=== PATIENT | female | born 1995 | race Two or more races ===

== ENCOUNTER 2024-01-18 08:20 | Emergency (ER) | payer MEDICAID ==
[~2024-01-18] VITALS: Ht 162.6 cm; Wt 72.3 kg
[2024-01-18 08:46] VITALS: BP 134/92; PULSE 108; RESP 16; TEMP 97.8; O2SAT 97
[2024-01-18] MEDS ORDERED: PROM1SOL4 PO (09:30)
[2024-01-18] MEDS ORDERED: AZIT-185 PO (09:30)
== END 2024-01-18 09:38 | disposition home or self-care (01) ==
LOC: ER 08:20
DX: J02.9 Acute pharyngitis, unspecified (principal); J06.9 Acute upper respiratory infection, unspecified; I10 Essential (primary) hypertension
CPT/HCPCS: 71045